=== PATIENT | female | born 2000 ===

== ENCOUNTER 2022-01-09 09:56 | Outpatient (CLI) | payer OTHER ==
--- NOTE | 2022-01-09 16:25 | XRAY Report ---
PROCEDURE: Ankle 3 View RT INDICATIONS: R ANKLE PX TECHNIQUE: 3 views of the ankle were acquired. COMPARISON: None FINDINGS: Bones: No fractures or dislocations. Ankle mortise is normally aligned. No suspicious bony lesions . Soft tissues: Lateral malleolar edema. Achilles tendon appears normal. IMPRESSION: No visualized acute fracture or dislocation. However, occult injury cannot be excluded. Recommend short interval imaging follow-up in 7-10 days as clinically indicated for additional evalua tion. Reviewed by: Nataliya Ross MD on 01/09/2022 4:23 PM PDT Approved by: Nataliya Ross MD on 01/09/2022 4:23 PM PDT Station ID: [id number]
== END 2022-01-09 23:59 | disposition home or self-care (01) ==
LOC: DI.N 09:56
PROVIDERS: ATTEND Family Medicine
DX: S93.491A Sprain of other ligament of right ankle, initial encounter (principal)

== ENCOUNTER 2022-05-27 14:43 | Outpatient (CLI) | payer OTHER ==
--- NOTE | 2022-05-27 15:19 | CT Report ---
PROCEDURE: HEAD WO INDICATIONS: Headache TECHNIQUE: Noncontrast 4.5 mm thick angled axial sections acquired from the foramen magnum to the vertex. For r adiation dose reduction, the following was used: automated exposure control, adjustment of mA and/or kV according to patient size. COMPARISON: None. FINDINGS: Image quality: Excellent. CSF spaces: Basal cisterns are patent. No extra-axial fluid collections. Ventricles are normal in size and shape. Brain: No midline shift. No intracranial masses or hemorrhage. Sam-white matter interface is norm al. Skull and face: Calvarium and visualized facial bones are intact, without suspicious lesions. Sinuses: Visualized sinuses and mastoids are clear. IMPRESSION: No acute finding. Reviewed by: Hossein Altamirano MD on 05/27/2022 3:[address] [facility] Approved by: Hossein Altamirano MD on 05/27/2022 3:[address] [facility] Station ID: [id number]
== END 2022-05-27 14:44 | disposition home or self-care (01) ==
LOC: DI 14:43
PROVIDERS: ATTEND Student in an Organized Health Care Education/Training Program
DX: R51.9 Headache, unspecified (principal)